=== PATIENT | female | born 1950 | race Caucasian/White ===

== ENCOUNTER → 2016-09-08 | Outpatient (CLI) | payer OTHER | LOC: GMA 14:26 | PROVIDERS: ATTEND Nurse Practitioner Acute Care | DX: Z01.419 Encounter for gynecological examination (general) (routine) without abnormal findings (principal); E78.5 Hyperlipidemia, unspecified; N95.8 Other specified menopausal and perimenopausal disorders ==

== ENCOUNTER 2016-12-02 06:00 | Day surgery (SDC) | payer OTHER ==
[2016-12-02] MEDS ORDERED: LACTATED RINGERS 1,000 ML ONE (06:05)
--- NOTE | 2016-12-02 09:09 | OP ---
DATE OF PROCEDURE: 12/02/16 PREPROCEDURE DIAGNOSIS: 1. Average risk colorectal cancer screening. POSTPROCEDURE DIAGNOSIS: 1. Ulcerated ascending colon mass, suspect malignant. 2. Diverticulosis. PROCEDURE: 1. Colonoscopy with biopsy and tattooing. SURGEON: Shravan Rausch MD. SEDATION: Monitored anesthesia care. ESTIMATED BLOOD LOSS: Less than 5 mL. PROCEDURE: Informed consent was obtained prior to sedation. The preprocedure cardiopulmonary assessment was satisfactory. The patient was brought to the Endoscopy Suite and placed in the left lateral decubitus position. The patient was then sedated by the anesthesia team. Digital rectal exam demonstrated some anal stenosis. The tip of the Olympus colonoscope was inserted into the rectum and advanced under direct visualization to the terminal ileum. The cecum was identified by the appendiceal orifice and ileocecal valve. Preparation of the colon was good. Upon reaching the terminal ileum, the endoscope was slowly withdrawn from the patient with careful attention paid to the entire colonic mucosa for the identification of any flat polyps. In the ascending colon, just distal to the ileocecal valve, there was an ulcerated, alan-circumferential mass that appeared malignant in etiology. Extensive biopsies were taken of this mass for analysis and an area of normal colonic mucosa distal to the mass was tattooed in two locations with about 2 mL of carbon black. In the sigmoid colon, there was diverticulosis. Retroflexed view of the rectum revealed no abnormalities. The endoscope was then withdrawn from the patient and the procedure terminated. RECOMMENDATION: 1. Discharge the patient home with escort. 2. Advance to regular diet. 3. Followup pathology results. 4. Followup in oncology clinic within one week with Dr. Roldan for further management of this mass lesion. #[id number] [facility]
[2016-12-02] MEDS ORDERED: PROPOFOL 200 MG/20 ML VIAL IV ONE (10:00)
[2016-12-02] MEDS ORDERED: LIDOCAINE 1% 10 ML VIAL INJ ONE (10:00)
[2016-12-02 13:30] VITALS: O2SAT 100
[2016-12-02 13:54] VITALS: BP 169/75; TEMP 97.8
== END 2016-12-02 10:00 | disposition home or self-care (01) ==
LOC: AMB 06:00
PROVIDERS: ATTEND Internal Medicine Gastroenterology
DX: Z12.11 Encounter for screening for malignant neoplasm of colon (principal); C18.2 Malignant neoplasm of ascending colon; K57.30 Diverticulosis of large intestine without perforation or abscess without bleeding; F41.9 Anxiety disorder, unspecified
CPT/HCPCS: 00810; 45380; J3490; J7120

== ENCOUNTER → 2017-05-07 | Outpatient (CLI) | payer OTHER | END | disposition home or self-care (01) | LOC: GMAM 12:35 | PROVIDERS: ATTEND Family Medicine | DX: C18.2 Malignant neoplasm of ascending colon (principal); R93.2 Abnormal findings on diagnostic imaging of liver and biliary tract; E55.9 Vitamin D deficiency, unspecified ==

== ENCOUNTER → 2017-08-25 | Outpatient (CLI) | payer OTHER ==
--- NOTE | 2017-08-27 14:39 | MAM ---
EXAM DESCRIPTION: 3D Screening BILATERAL : Digital Mammography. CLINICAL HISTORY: 66 years Female SCREEN . No complaints. No family history of breast cancer. Postmenopausal. No HRT. Prior biopsy left breast. COMPARISON: 2-D digital screening bilateral study 05/16/2015.. No prior reports available. TECHNIQUE: Bilateral CC and MLO projection full-field images, 3-D tomosynthesis digital mammographic technique. Also bilateral synthesized CC/ MLO full-field images. CAD not utilized. FINDINGS: The breast parenchymal density pattern is: Heterogeneously dense breast tissue, which may obscure small masses. No skin thickening or nipple retraction bilateral solitary microcalcifications. Group of microcalcifications in the upper outer quadrant of the middle third of the right breast at the 1100 clock position. Not associated with a definite mass but surrounded by fibroglandular tissues. Most of these calcifications have increased in size and have a more benign appearance compared to the prior study. Some the calcifications remain tiny. These are more distinct than on the prior study. No focal, stellate mass or density, focal asymmetry , and no suspicious microcalcifications left breast. Stable left breast mammograms compared to prior study, taking into account differences in mammographic technique IMPRESSION: BI-RADS CATEGORY: 0 - INCOMPLETE- Need additional imaging evaluation. FOLLOW-UP: Recall for additional imaging: Digital orthogonal spot magnification of the region of interest in the upper outer quadrant right breast. 3-D tomosynthesis digital full field LM image right breast. Targeted right breast ultrasound if indicated by diagnostic images.. Written communication concerning the IMPRESSION and Follow-up, will be mailed to the patient and referring health care provider. Electronically signed by: Toney Knott MD 08/27/2017 2:37 PM CDT
== END ==
LOC: MAMMO 10:00
PROVIDERS: ATTEND Family Medicine
DX: Z12.31 Encounter for screening mammogram for malignant neoplasm of breast (principal)

== ENCOUNTER → 2017-09-14 | Outpatient (CLI) | payer OTHER ==
--- NOTE | 2017-09-14 16:31 | MAM ---
EXAM DESCRIPTION: 3D Diagnostic, Bilateral: Digital Mammography CLINICAL HISTORY: 66 yearsFemaleABNORMAL SCREENING . Group of coarse and microcalcifications in the upper outer quadrant of the right breast.. COMPARISON: Bilateral 3-D screening mammographic examination 08/25/2017.. Targeted right breast ultrasound following this examination. Reports from prior examinations also reviewed. TECHNIQUE: Bilateral LM projection full-field images, 3-D tomosynthesis digital mammographic technique. Also bilateral synthesized LM full-field images. Right CC full-field 3-D image And spot magnification upper outer quadrant right breast LM and CC projections. CAD. Utilized for 2-D images only. FINDINGS: The breast parenchymal density pattern is: Heterogeneously dense breast tissue, which may obscure small masses. No skin thickening or nipple retraction group of heterogeneous calcifications at the 1100 clock position of the right breast, 6 cm from the nipple. Most of the calcifications appear round with varying sizes. No focal, stellate mass or density, focal asymmetry , and no suspicious microcalcifications left breast. ULTRASOUND: Scanning of the 1100 clock position of the right breast 5 cm from the nipple. Heterogeneous fatty and fibroglandular tissues. Cluster of echogenic calcifications is visualized with minimal acoustic shadowing. No distinct mass or cyst. No parenchymal edema. No abnormal Doppler vascularity. No overlying skin changes. IMPRESSION: BI-RADS CATEGORY: 3 - PROBABLY BENIGN. Management: Short interval (6-month) follow-up mammography and targeted right breast ultrasound if indicated by diagnostic images. The FINDINGS and the FOLLOW-UP plan were reviewed in person with the patient after the examination. Written communication explaining the IMPRESSION and FOLLOW-UP will be mailed to the patient and referring care provider. Electronically signed by: Toney Knott MD 09/14/2017 4:30 PM CDT
--- NOTE | 2017-09-14 16:31 | US ---
EXAM DESCRIPTION: Breast,Right: Ultrasound CLINICAL HISTORY: 66 yearsFemaleABNORMAL MAMMO COMPARISON: Digital diagnostic 3-D tomosynthesis bilateral mammography on this visit. 3-D tomosynthesis screening bilateral study 08/25/2017. TECHNIQUE: Transcutaneous scanning of the right breast utilizing two-dimensional and Doppler modes. Scanning performed by the field account manager and Dr. Knott. FINDINGS: Scanning of the 1100 clock position of the right breast 5 cm from the nipple. Heterogeneous fatty and fibroglandular tissues. Cluster of echogenic calcifications is visualized with minimal acoustic shadowing. No distinct mass or cyst. No parenchymal edema. No abnormal Doppler vascularity. No overlying skin changes. IMPRESSION: 1. Bi-Rads Category 3: Probably Benign Findings. 2. Please refer to bilateral diagnostic 3-D tomosynthesis mammography and report on this visit. The FINDINGS and the FOLLOW-UP plan were reviewed in person with the patient after the examination. Written communication explaining the IMPRESSION and FOLLOW-UP will be mailed to the patient and referring care provider. Electronically signed by: Toney Knott MD 09/14/2017 4:30 PM CDT
== END ==
LOC: MAMMO 10:00
PROVIDERS: ATTEND Family Medicine
DX: R92.8 Other abnormal and inconclusive findings on diagnostic imaging of breast (principal)
CPT/HCPCS: 76641; 77066; G0279

== ENCOUNTER → 2018-02-15 | Outpatient (CLI) | payer OTHER | LOC: GMAM 11:34 | PROVIDERS: ATTEND Family Medicine | DX: C18.2 Malignant neoplasm of ascending colon (principal); R93.2 Abnormal findings on diagnostic imaging of liver and biliary tract; E55.9 Vitamin D deficiency, unspecified ==

== ENCOUNTER → 2018-03-09 | Outpatient (CLI) | payer OTHER ==
--- NOTE | 2018-03-11 09:03 | MAM ---
EXAM DESCRIPTION: 3D Diagnostic, Right: Digital Mammography CLINICAL HISTORY: 67 yearsFemaleABNORMAL MAMMO follow-up calcifications right breast.. COMPARISON: Bilateral diagnostic digital breast tomosynthesis 09/14/2017.. . TECHNIQUE: Right breast CC LM MLO projection full-field images, digital mammographic tomosynthesis technique. Right breast full-field digital MLO image. CAD not available. FINDINGS: The breast parenchymal density pattern is: Heterogeneously dense breast tissue, which may obscure small masses. No skin thickening or nipple retraction again noted are a group of heterogeneous calcifications, some which are coarse, at the 11:00 position of the right breast 6 cm from the nipple. This group shows no change or increase in the smaller microcalcifications. No developing mass. No new focal, stellate mass or density, focal asymmetry , and no suspicious microcalcifications right breast. Stable mammograms compared to prior study, taking into account differences in mammographic technique IMPRESSION: BI-RADS CATEGORY: 3 - PROBABLY BENIGN. Management: Short interval (6-month) diagnostic bilateral tomosynthesis in August 2018, with special magnification images right breast.. The FINDINGS and the FOLLOW-UP plan were reviewed in person with the patient after the examination. Written communication explaining the IMPRESSION and FOLLOW-UP will be mailed to the patient and referring care provider. Electronically signed by: Toney Knott MD 03/11/2018 9:02 AM [facility]
== END ==
LOC: MAMMO 09:21
PROVIDERS: ATTEND Family Medicine
DX: R92.8 Other abnormal and inconclusive findings on diagnostic imaging of breast (principal)
CPT/HCPCS: 77065; G0279

== ENCOUNTER → 2018-09-05 | Outpatient (CLI) | payer OTHER ==
--- NOTE | 2018-09-05 16:25 | MAM ---
EXAM DESCRIPTION: 3D Diagnostic, Bilateral (accession [id number]), Digital Mammography. Breast,Right (accession [id number]): Ultrasound CLINICAL HISTORY: 67 yearsFemale6 MONTH FOLLOW UP. Group of calcifications upper outer quadrant right breast. No complaints. No personal or family history of breast cancer. Childbirth. Postmenopausal 13 years. No HRT. Prior left breast biopsy. COMPARISON: Diagnostic right breast digital tomosynthesis 03/09/2018. Ultrasound right breast and diagnostic right breast digital tomosynthesis 09/14/2017, and bilateral screening digital breast tomosynthesis 08/25/2017. TECHNIQUE: Transcutaneous scanning of the right breast utilizing hyde-scale and Doppler modes. Scanning performed by the airport location manager and Dr. Knott. Bilateral LM, CC, and MLO projection full-field images, digital mammographic tomosynthesis technique. Bilateral 2-D digital full-field MLO images. 2-D spot magnification of calcifications LM and CC projections. CAD not available. FINDINGS: The breast parenchymal density pattern is: Heterogeneously dense breast tissue, which may obscure small masses. No skin thickening or nipple retraction. Bilateral axillary lymph nodes. The group of heterogeneous and pleomorphic calcifications shows subtle changes since the prior screening study in August 2017 with decrease in size of the larger calcifications and more heterogeneity. Tomosynthesis images also suggest a soft tissue mass.. Left Breast appears mammographically stable. ULTRASOUND: Scanning of the right upper outer quadrant breast. Mixture of fatty and fibroglandular tissues. At the 10:00 sector 4 cm from the nipple is a somewhat irregular anechoic cyst with intermittent intimal wall thickening. Dimensions are 6.7 x 5.0 x 3.1 mm. Not vascular. Wider than tall orientation and predominantly acoustic posterior enhancement. Most likely a complicated or involuting cyst. At the 11:00 sector 4 cm from the nipple is a multilobulated hypoechoic heterogeneous mass with internal bright echoes which may represent calcifications. Predominantly posterior acoustic shadowing. Dimensions are approximately 1.2 x 1.1 x 0.7 cm with wider than tall orientation. Not vascular. Slightly enlarged since the prior study. This could represent a fibroadenoma but also demonstrates malignant characteristics. IMPRESSION: Group of microcalcifications associated with a soft tissue mass in the upper outer quadrant of the right breast with some mammographic features and sonographic features suggestive of malignancy. ASSESSMENT: BI-RADS CATEGORY 4: SUSPICIOUS. SUB-CATEGORY 4A - LOW SUSPICION FOR MALIGNANCY. FOLLOW-UP: Surgical consultation and tissue diagnosis should be considered. The FINDINGS and FOLLOW-UP plan were reviewed in person with the patient following the examination. Written communication explaining the IMPRESSION and FOLLOW-UP will be mailed to the patient and referring care provider. CRITICAL COMMUNICATION: The critical value was discussed directly by phone with Dr. Carolina Lyons at approximately 1610 hours, on September 05, 2018. Electronically signed by: Toney Knott MD 09/05/2018 4:22 PM CDT
== END ==
LOC: MAMMO 10:26
PROVIDERS: ATTEND Family Medicine
DX: R92.8 Other abnormal and inconclusive findings on diagnostic imaging of breast (principal); R92.0 Mammographic microcalcification found on diagnostic imaging of breast